=== PATIENT | male | born 1965 | race Two or more races ===

== ENCOUNTER 2022-01-01 08:00 | Outpatient (CLI) | payer OTHER | END 2022-01-01 08:30 | disposition home or self-care (01) | LOC: PPH VACUNA 08:00 | PROVIDERS: ATTEND Emergency Medicine Pediatric Emergency Medicine | DX: Z23 Encounter for immunization (principal) ==

== ENCOUNTER 2022-06-12 09:40 | Outpatient (CLI) | payer OTHER | END 2022-06-12 09:50 | disposition home or self-care (01) | LOC: PPH VACUNA 09:40 | PROVIDERS: ATTEND Emergency Medicine Pediatric Emergency Medicine | DX: Z23 Encounter for immunization (principal) ==